=== PATIENT | male | born 1985 | race Native Hawaiian/Other Pacific Islander ===

== ENCOUNTER 2020-09-17 15:10 | Emergency (ER) | payer SELFPAY ==
[~2020-09-17] VITALS: Ht 177.8 cm; Wt 92.3 kg
[2020-09-17] MEDS ORDERED: CEPHALEXIN500 M1 PO (18:07)
[2020-09-17 18:20] VITALS: BP 169/106; PULSE 94; TEMP 97.8
== END 2020-09-17 18:23 | disposition home or self-care (01) ==
LOC: COL.ER 15:10
DX: S81.811A Laceration without foreign body, right lower leg, initial encounter (principal); W26.9XXA Contact with unspecified sharp object(s), initial encounter

== ENCOUNTER → 2020-09-28 | Outpatient (CLI) | payer SELFPAY ==
[~2020-09-28] MED LIST: CEPHALEXIN500 M1 PO; NORVASC 5MG5 MG/TAB PO
[2020-09-28 16:48] VITALS: BP 161/91; PULSE 95; TEMP 98.6
== END ==
LOC: COL.ER 16:29
DX: Z48.02 Encounter for removal of sutures (principal)

== ENCOUNTER 2020-10-23 15:32 | Emergency (ER) | payer SELFPAY ==
[~2020-10-23] VITALS: Ht 175.3 cm; Wt 90.9 kg
[~2020-10-23 15:32] MED LIST changes: -NORVASC 5MG5 MG/TAB PO
[2020-10-23 16:23] VITALS: TEMP 98.1
[2020-10-23 17:50] LABS: BASO # 0.1 (0.0-0.2); BASO % 0.7 % (0.0-2.0); EOS # 0.2 (0.0-0.7); EOS % 1.6 % (0-4.0); GRAN # 6.9 (1.4-6.5); GRAN % 75.2 % (42.2-75.2); HEMATOCRIT 49.6 % (42.0-52.0); HEMOGLOBIN 17.2 g/dl (13.5-18.0); LYMPH # 1.1 (1.2-3.4); MEAN CELL VOLUME 90 fl (80.0-100.0); MEAN CORPUSCULAR HEMOGLOBIN 31 pg (27.0-31.0); MEAN CORPUSCULAR HGB CONC 35 g/dl (33.0-37.0); MEAN PLATELET VOLUME 11.7 fl (7.4-10.4); MONO # 0.9 (0.1-0.6); MONO % 10.2 % (1.7-9.3); PLATELET COUNT 178 K/mm3 (130-400); RED BLOOD COUNT 5.53 M/mm3 (4.20-5.60); REDCELL DISTRIBUTION WIDTH-CV 11.9 % (11.5-14.5)
[2020-10-23 18:04] LABS: ALANINE AMINOTRANSFERASE 97 U/L (4-49); ALKALINE PHOSPHATASE 92 U/L (50-136); ANION GAP 10 mmol/L (7-16); AST,SGOT 70 U/L (15-37); BILIRUBIN,TOTAL 0.7 mg/dL (0.0-1.0); BLOOD UREA NITROGEN 13 mg/dL (9-20); CALCIUM 9.7 mg/dL (8.4-10.2); CARBON DIOXIDE 26 mmol/L (22-30); CHLORIDE 101 mmol/L (98-107); CREATININE, serum 0.72 (0.66-1.25); GLUCOSE 91 mg/dL (74-106); LIPASE 30 U/L (23-300); POTASSIUM 4.3 mmol/L (3.4-5.0); SODIUM 136 mmol/L (137-145); TOTAL PROTEIN 8.9 gm/dL (6.4-8.2)
[2020-10-23 18:20] LABS: TROPONIN-I < 0.012 ng/mL (0.000-0.035)
[2020-10-23] MEDS ORDERED: NORVASC 5MG5 MG/TAB PO (21:28)
[2020-10-23 22:00] VITALS: BP 150/110; PULSE 86
== END 2020-10-23 22:00 | disposition home or self-care (01) ==
LOC: COL.ER 15:32
PROVIDERS: Nurse Practitioner Primary Care
DX: R20.2 Paresthesia of skin (principal); R03.0 Elevated blood-pressure reading, without diagnosis of hypertension; R94.5 Abnormal results of liver function studies; K21.9 Gastro-esophageal reflux disease without esophagitis
CPT/HCPCS: J7030

== ENCOUNTER 2023-06-06 00:26 | Emergency (ER) | payer SELFPAY ==
[~2023-06-06] VITALS: Ht 177.8 cm; Wt 79.5 kg
[~2023-06-06 00:26] MED LIST changes: +NORVASC 10MG10 MG PO; +NORVASC 5MG5 MG/TAB PO; +PRINIVIL10 MG PO
[2023-06-06 00:40] VITALS: TEMP 97.1
[2023-06-06 01:19] LABS: BASO # 0.1 K/mm3 (0.0-0.2); BASO % 0.7 % (0.0-2.0); EOS # 0.3 K/mm3 (0.0-0.7); EOS % 4.4 % (0.0-4.0); GRAN # 3.3 K/mm3 (1.4-6.5); GRAN % 48.8 % (42.2-75.2); HEMATOCRIT 41.2 % (42.0-52.0); HEMOGLOBIN 14.2 g/dl (13.5-18.0); LYMPH # 2.3 K/mm3 (1.2-3.4); LYMPH % 34.2 % (20.0-51.0); MEAN CELL VOLUME 86 fl (80.0-100.0); MEAN CORPUSCULAR HEMOGLOBIN 30 pg (27-31); MEAN CORPUSCULAR HGB CONC 35 g/dl (33.0-37.0); MEAN PLATELET VOLUME 11.5 fl (7.4-10.4); MONO # 0.8 K/mm3 (0.1-0.6); MONO % 11.8 % (1.7-9.3); PLATELET COUNT 177 K/mm3 (130-400); RED BLOOD COUNT 4.77 M/mm3 (4.20-5.60)
[2023-06-06 01:21] LABS: ALANINE AMINOTRANSFERASE 15 U/L (0-55); ALBUMIN 4.5 gm/dL (3.5-5.0); ALKALINE PHOSPHATASE 87 U/L (40-150); ANION GAP 13 mmol/L (7-16); AST,SGOT 19 U/L (5-34); BILIRUBIN,TOTAL 0.3 mg/dL (0.2-1.2); BLOOD UREA NITROGEN 19 mg/dL (9-21); CALCIUM 9.8 mg/dL (8.4-10.2); CARBON DIOXIDE 20 mmol/L (22-29); CHLORIDE 107 mmol/L (98-107); CREATININE, serum 0.88 mg/dL (0.72-1.25); GLUCOSE 79 mg/dL (70-99); SODIUM 140 mmol/L (136-145); TOTAL PROTEIN 7.4 gm/dL (6.2-8.1)
[2023-06-06 02:02] LABS: TSH w REFLEX 3.454 uIU/mL (0.350-4.940)
[2023-06-06 02:06] LABS: TROPONIN-I < 0.010 ng/mL (0.00-0.033)
[2023-06-06 03:17] VITALS: BP 1111/72; PULSE 62
== END 2023-06-06 03:19 | disposition home or self-care (01) ==
LOC: COL.ER 00:26
PROVIDERS: Nurse Practitioner
DX: R00.2 Palpitations (principal); R07.9 Chest pain, unspecified; R06.02 Shortness of breath

== ENCOUNTER 2023-11-30 00:08 | Emergency (ER) | payer SELFPAY ==
[~2023-11-30] VITALS: Ht 172.7 cm; Wt 79.1 kg
[2023-11-30 00:23] VITALS: TEMP 98.2
[2023-11-30] MEDS ORDERED: LORazepam 2 MG/ML 1 ML VIAL IV ONE (02:30)
[2023-11-30 03:06] LABS: BASO # 0.1 K/mm3 (0.0-0.2); BASO % 0.7 % (0.0-2.0); EOS # 0.3 K/mm3 (0.0-0.7); EOS % 4.7 % (0.0-4.0); GRAN # 4.4 K/mm3 (1.4-6.5); GRAN % 59.6 % (42.2-75.2); HEMATOCRIT 41.3 % (42.0-52.0); HEMOGLOBIN 13.8 g/dl (13.5-18.0); LYMPH # 1.9 K/mm3 (1.2-3.4); LYMPH % 25.4 % (20.0-51.0); MEAN CELL VOLUME 86 fl (80.0-100.0); MEAN CORPUSCULAR HEMOGLOBIN 29 pg (27-31); MEAN CORPUSCULAR HGB CONC 33 g/dl (33.0-37.0); MONO # 0.7 K/mm3 (0.1-0.6); MONO % 9.3 % (1.7-9.3); PLATELET COUNT 186 K/mm3 (130-400); RED BLOOD COUNT 4.78 M/mm3 (4.20-5.60); REDCELL DISTRIBUTION WIDTH-CV 12.2 % (11.5-14.5)
[2023-11-30 03:30] LABS: ALBUMIN 4.6 g/dL (3.5-5.0); BILIRUBIN,TOTAL 0.3 mg/dL (0.2-1.2); CREATININE, serum 0.89 mg/dL (0.72-1.25); POTASSIUM 4.1 mEq/L (3.5-4.5); TOTAL PROTEIN 7.7 g/dl (6.2-8.1)
[2023-11-30 03:35] LABS: TROPONIN-I 0.017 ng/mL (0.00-0.033)
[2023-11-30] MEDS ORDERED: NS 64 ML IV SCH (04:22)
[2023-11-30] MEDS ORDERED: Iohexol 350 - 100 ML VIAL IV ONE (04:22)
[2023-11-30] MEDS ORDERED: VENTOLIN0.09 MG IH (04:56)
[2023-11-30 05:07] VITALS: BP 104/86; PULSE 62
== END 2023-11-30 05:10 | disposition home or self-care (01) ==
LOC: COL.ER 00:08
PROVIDERS: Nurse Practitioner
DX: B34.9 Viral infection, unspecified (principal); R00.2 Palpitations; R42 Dizziness and giddiness; R07.9 Chest pain, unspecified; R06.02 Shortness of breath; R51.9 Headache, unspecified; J02.9 Acute pharyngitis, unspecified; M54.2 Cervicalgia; R05.9 Cough, unspecified; R09.81 Nasal congestion
CPT/HCPCS: J2060; Q9967